=== PATIENT | female | born 1960 | race Caucasian/White ===

== ENCOUNTER 2017-07-30 08:02 | Emergency (ER) | payer SELFPAY ==
[2017-07-30 08:08] VITALS: BP 155/88; PULSE 84; TEMP 97.9; BMI 25.2
[2017-07-30] MEDS ORDERED: KETOROLAC TROMETHAMINE 60 MG/2 ML VIAL ONE (08:42)
[2017-07-30] MEDS ORDERED: KETOROLAC TROMETHAMINE 60 MG/2 ML VIAL IM ONE (08:45)
--- NOTE | 2017-07-30 09:10 | PDOC ---
History of Present Illness - General Chief Complaint: Pain, Acute Stated Complaint: PAIN Time Seen by Provider: 07/30/17 08:36 History Source: Patient Exam Limitations: No Limitations - History of Present Illness Initial Comments: 07/30/17 09:10 Patient states woke up yesterday with tenderness to the left side of her neck that is progressively worsened where she has inability to turn head now. Denies any knowledge of exercise change, trauma, heavy lifting or strenuous activity that would've caused a strain. Has never had problems with her neck in the past. Tried some heat patches and some ibuprofen with minimal resolved. Denies numbness or tingling to hands, no fevers, no rashes. Works as a home health aide Occurred: reports: yesterday Severity: reports: moderate Pain Location: reports: neck Method of Injury: Yes: unknown Modifying Factors: improves with: None Loss of Consciousness: no loss of consciousness Past History - Travel Traveled outside of the country in the last 30 days: No Close contact w/someone who was outside of country & ill: No - Past Medical History Allergies/Adverse Reactions: Allergies Allergy/AdvReac Type Severity Reaction Status Date / Time No Known Allergies Allergy Verified 07/30/17 08:04 Home Medications: Ambulatory Orders Cyclobenzaprine HCl [Flexeril 10 mg] 10 mg PO BID PRN #14 tablet 07/30/17 COPD: No - Immunization History Immunization Up to Date: Yes - Suicide/Smoking/Psychosocial Hx Smoking History: Former smoker Have you smoked in the past 12 months: No If you are a former smoker, when did you quit?: 10yrs Information on smoking cessation initiated: No Hx Alcohol Use: No Drug/Substance Use Hx: No Substance Use Type: None Review of Systems - Review of Systems Able to Perform ROS?: Yes Is the patient limited Maori proficient: Yes Constitutional: Yes: Symptoms Reported, See HPI, Malaise. No: Loss of Appetite HEENTM: Yes: Symptoms Reported, See HPI Respiratory: Yes: See HPI. No: Cough Musculoskeletal: Yes: Symptoms Reported, Joint Pain, Neck Pain, Joint Stiffness Integumentary: Yes: See HPI. No: Symptoms Reported All Other Systems: Reviewed and Negative *Physical Exam - Vital Signs Last Vital Signs Temp Pulse Resp BP Pulse Ox 97.9 F 84 16 155/88 97 07/30/17 08:05 07/30/17 08:05 07/30/17 08:05 07/30/17 08:05 07/30/17 08:05 - Physical Exam General Appearance: Yes: Nourished, Appropriately Dressed, Apparent Distress, Moderate Distress HEENT: positive: ADRIAN, Normal ENT Inspection, TMs Normal, Pharynx Normal Neck: positive: Other (palpable spasm to the paravertebral spinous musculature worse on the left than the right. Unable to turn head secondary to the spasm and cording of that muscle group. Has no spine tenderness, neurovascular intact to hand.) Respiratory/Chest: positive: Lungs Clear, Normal Breath Sounds Extremity: positive: Normal Capillary Refill, Normal Inspection, Normal Range of Motion Integumentary: positive: Normal Color, Dry, Warm Neurologic: positive: coding team lead II-XII NML intact, Fully Oriented, Alert, Normal Mood/ Affect, Normal Response, Motor Strength 01/06 ED Treatment Course - Medications Given in the ED: ED Medications Discontinued Medications Generic Name Dose Route Start Last Admin Trade Name Darrylq PRN Reason Stop Dose Admin Ketorolac Tromethamine 60 mg 07/30/17 08:45 07/30/17 08:45 Toradol Injection - IM 07/30/17 08:46 60 mg NOW ONE Administration Progress Note - Progress Note Progress Note: Cervical strain, will treat with NSAIDs and cyclobenzaprine *DC/Admit/Observation/Transfer Diagnosis at time of Disposition: Torticollis, acute - Discharge Dispostion Disposition: HOME Condition at time of disposition: Stable Admit: No - Referrals - Patient Instructions Printed Discharge Instructions: DI for Cervical Muscle Strain Additional Instructions: Rest, no heavy lifting or exercise until pain is resolved Hot soaks to neck and low back as often as possible/hot showers or Jacuzzis No massage or therapy until spasm is gone Continue ibuprofen 2-200 mg tablets every 6 hours for the next 3 days then as needed for pain and swelling Cyclobenzaprine 1-10mg every 8 hours as needed for spasm If not significant improvement within 24 hours with medication and rest regime, followup with private physician for change in medications and /or therapy. - Post Discharge Activity Forms/Work/School Notes: Back to Work
== END 2017-07-30 09:14 | disposition home or self-care (01) ==
LOC: JERFT 08:02
PROC: 3E0233Z Introduction of Anti-inflammatory into Muscle, Percutaneous Approach (ICD-10-PCS; principal; 2017-07-30)
DX: G24.3 Spasmodic torticollis (principal); Z87.891 Personal history of nicotine dependence
CPT/HCPCS: 99281-25